=== PATIENT | female | born 1955 | race Caucasian/White ===

== ENCOUNTER 2016-12-07 21:47 | Emergency (ER) | payer MEDICARE, OTHER ==
[~2016-12-07] VITALS: Ht 152.4 cm; Wt 78.0 kg
[~2016-12-07 21:47] MED LIST: ALBU18HF INHALATION; ALBU8.5H5 INH; ATEN-51 PO; AZIT250T94 PO; GUAI118L94 PO; LEVO500T72 PO; METF500T4 PO; PRED20TA PO; PRED50TA PO
[2016-12-07 21:52] VITALS: Ht 152.4 cm; Wt 78.0 kg
[2016-12-08] MEDS ORDERED: ALBUTEROL 0.083% (NEB) 2.5 MG/3 ML AMP NEB STA (01:14)
[2016-12-08] MEDS ORDERED: IPRATROPIUM (NEB) 0.5 MG/2.5 ML AMP NEB STA (01:14)
[2016-12-08] MEDS ORDERED: predniSONE 20 MG TAB PO STA (01:14)
[2016-12-08] MEDS ORDERED: ACETAMINOPHEN 325 MG TAB PO ONE (01:30)
--- NOTE | 2016-12-08 01:40 | ERD ---
ER Documentation Chief Complaint Date/Time DATE: 12/08/16 TIME: 01:36 Chief Complaint COUGH SOB X3 DAYS STATES SHE HAS BRONCHITIS HPI 61-year-old female with a history of asthma and bronchitis presents the emergency department complaining of cough and shortness of breath 3 days. Patient states her cough has become progressively worse and is now productive with associated wheezing. Patient states she normally uses an albuterol inhaler but needs a refill prescription. Patient also states she has been experiencing fever and chills. Last dose of Tylenol was 5 hours prior to arrival. Patient denies nausea, vomiting, abdominal pain, diarrhea. ROS All systems reviewed and are negative except as per history of present illness. Medications Home Meds Active Scripts Azithromycin* (Zithromax*) 250 Mg Tablet, 250 MG PO .PUNEET DIRECTED, #6 TAB TAKE 500 MG (2 TABS) THE FIRST DAY THEN 250 MG (1 TAB) DAYS 2-5 Prov:AUDREY GODWIN PA-C 12/08/16 Albuterol Sulfate* (Proair HFA*) 8.5 Gm Hfa.aer.ad, 2 PUFF INH Q4, #1 INHALER Prov:AUDREY GODWIN PA-C 12/08/16 Prednisone* (Prednisone*) 20 Mg Tab, 40 MG PO DAILY for 4 Days, TAB Prov:AUDREY GODWIN PA-C 12/08/16 Azithromycin* (Zithromax*) 250 Mg Tablet, 250 MG PO DAILY for 4 Days, TAB Prov:LION LOCKWOOD MD 05/14/16 Prednisone* (Prednisone*) 20 Mg Tab, 60 MG PO DAILY for 4 Days, TAB Prov:LION LOCKWOOD MD 05/14/16 Albuterol Sulfate* (Ventolin HFA*) 18 Gm Hfa.aer.ad, 2 PUFF INHALATION Q4H, #1 INHALER Prov:LION LOCKWOOD MD 05/14/16 Prednisone* (Prednisone*) 50 Mg Tablet, 50 MG PO DAILY for 5 Days, TAB Prov:ROSE CUNHA NP 06/03/15 Albuterol Sulfate* (Albuterol Sulfate* HFA) 8.5 Gm Hfa.aer.ad, 2 PUFF INH Q4 Y for SHORTNESS OF BREATH, #1 EA Prov:ROSE CUNHA NP 06/03/15 Levofloxacin* (Levaquin*) 500 Mg Tablet, 500 MG PO DAILY for 7 Days, TAB Prov:ROSE CUNHA NP 06/03/15 Guaifenesin-Codeine Phosphate* (Guaifenesin* with Codeine Liq) 120 Ml Liquid, 5 ML PO Q4H Y for COUGH, #60 ML Prov:ROSE CUNHA NP 06/03/15 Reported Medications Atenolol* (Atenolol*) Unknown Strength Tablet, PO DAILY, TAB 06/03/15 Metformin* (Glucophage*) Unknown Strength Tab, PO BID, #20 TAB 06/03/15 Allergies Allergies: Coded Allergies: No Known Drug Allergies (Verified Allergy, Unknown, 06/03/15) PMhx/Soc Hx Respiratory Disorders: Yes (asthma, bronchitis) Hx Cardiac Disorders: Yes (htn) Hx Miscellaneous Medical Probl: Yes (dm) Hx Alcohol Use: No Hx Substance Use: No Hx Tobacco Use: No Physical Exam Vitals Vital Signs Date Time Temp Pulse Resp B/P Pulse Ox O2 Delivery O2 Flow Rate FiO2 12/08/16 01:47 82 18 97 21 12/07/16 21:52 100.7 94 26 163/72 96 Physical Exam Const: Well-developed, well-nourished, in mild distress Head: Atraumatic Eyes: Normal Conjunctiva ENT: Normal External Ears, Nose and Mouth. Neck: Full range of motion..~ No meningismus. Resp: Diffuse inspiratory and expiratory wheezes bilaterally. No rhonchi or rales. Cardio: Regular rate and rhythm, no murmurs Abd: Soft, non tender, non distended. Normal bowel sounds Skin: No petechiae or rashes Back: No midline or flank tenderness Ext: No cyanosis, or edema Neur: Awake and alert Psych: Normal Mood and Affect Results 24 hrs Current Medications Medications (Trade) Dose Ordered Sig/Zak Route PRN Reason Start Time Stop Time Status Last Admin Dose Admin Albuterol (Proventil 0.083% (Neb)) 5 mg ONCE STAT NEB 12/08/16 01:14 12/08/16 01:17 DC 12/08/16 01:45 Ipratropium [place] (Atrovent 0.02% (Neb)) 0.5 mg ONCE STAT NEB 12/08/16 01:14 12/08/16 01:17 DC 12/08/16 01:45 Prednisone (Prednisone) 60 mg ONCE STAT PO 12/08/16 01:14 12/08/16 01:17 DC 12/08/16 01:42 Acetaminophen (Tylenol Tab) 650 mg ONCE ONCE PO 12/08/16 01:30 12/08/16 01:31 DC 12/08/16 01:40 Procedures/MDM 61-year-old female with a history of asthma and bronchitis presents the emergency department for cough and shortness of breath 3 days. Patient's temperature measured 100.7 upon arrival. Patient was non-hypoxic at 96% on room air. Physical exam revealed bilateral diffuse wheezing. Patient received duo nebulizer treatment while in the emergency department as well as prednisone. Patient received Tylenol for fever which was well controlled. Case taken over by Rose riojas PA-C, as xray results and nebulizer treatment are pending. Departure Diagnosis: Primary Impression: Cough Additional Impressions: Shortness of breath Asthma exacerbation Fever Fever type: unspecified Qualified Code: R50.9 - Fever, unspecified fever cause Wheezing AUDREY GODWIN PA-C December 08, 2016 01:40 Departure Diagnosis: Primary Impression: Cough Additional Impression: Shortness of breath AUDREY GODWIN PA-C December 08, 2016 01:40
[2016-12-08] MEDS ORDERED: ALBU8.5H3 INH (01:50)
[2016-12-08] MEDS ORDERED: PRED20TA PO (01:50)
[2016-12-08] MEDS ORDERED: AZIT250T94 PO (01:50)
--- NOTE | 2016-12-08 03:01 | RADRPT ---
PROCEDURE: Chest. CLINICAL INDICATION: Cough. TECHNIQUE: Single frontal view of the chest was obtained. COMPARISON: 05/14/2016. FINDINGS: The cardiac silhouette is within normal limits. The aortic arch is calcified. There is a calcified granuloma within the right lung base. There is no focal consolidation, vascular congestion or pleur al effusion. There is no pneumothorax. IMPRESSION: No evidence for active cardiopulmonary disease. Aortic atherosclerosis. .Ike Olmos MD, MD Date Time Electronically viewed and signed by .Ike Olmos MD, on 12/08/2016 03:01 .T/
--- NOTE | 2016-12-08 03:06 | EN ---
Date/Time of Note Date/Time of Note DATE: 12/08/16 TIME: 03:05 ER Progress Note L . Cahta RODRIGUEZ signed out this patient to me, pending CXR results, this was reviewed, PROCEDURE: Chest. CLINICAL INDICATION: Cough. TECHNIQUE: Single frontal view of the chest was obtained. COMPARISON: 05/14/2016. FINDINGS: The cardiac silhouette is within normal limits. The aortic arch is calcified. There is a calcified granuloma within the right lung base. There is no focal consolidation, vascular congestion or pleural effusion. There is no pneumothorax. IMPRESSION: No evidence for active cardiopulmonary disease. Aortic atherosclerosis. .Ike Olmos MD, MD Date Time Electronically viewed and signed by .Ike Olmos MD, MD on 12/08/2016 03:01 .T/ Patient was d/c accdg to Chata's instructions. Stable, Lungs clear, oxygenation normal. MERT CUNHA NP December 08, 2016 03:06
[2016-12-08 03:14] VITALS: BP 144/75; PULSE 89; RESP 26; TEMP 99.1
== END 2016-12-08 03:16 | disposition home or self-care (01) ==
LOC: FTE 21:47
DX: J45.901 Unspecified asthma with (acute) exacerbation (principal); R50.9 Fever, unspecified; I10 Essential (primary) hypertension; E11.9 Type 2 diabetes mellitus without complications; Z79.84 Long term (current) use of oral hypoglycemic drugs
CPT/HCPCS: 71010; 94664; J7512

== ENCOUNTER 2016-12-10 14:34 | Emergency (ER) | payer MEDICARE, OTHER ==
[~2016-12-10] VITALS: Wt 78.5 kg
[~2016-12-10 14:34] MED LIST changes: +ALBU8.5H3 INH
[2016-12-10] MEDS ORDERED: IPRATROPIUM (NEB) 0.5 MG/2.5 ML AMP INH STA (15:24)
[2016-12-10] MEDS ORDERED: ALBUTEROL 0.5% (NEB) 2.5 MG/0.5 ML AMP INH STA (15:24)
[2016-12-10] MEDS ORDERED: predniSONE 20 MG TAB PO STA (15:24)
--- NOTE | 2016-12-10 16:46 | ERD ---
ER Documentation Chief Complaint Date/Time DATE: 12/10/16 TIME: 16:43 Chief Complaint SOB/COUGH X1WEEK HPI This is a 61-year-old female who presents to the emergency room for evaluation of shortness of breath, and wheezing. The patient states that she has had symptoms for 1 week duration. She was seen in the emergency room this week and was diagnosed with bronchitis and discharged home with prednisone and azithromycin. This patient states that she has only gotten slightly better and came to the ER today for evaluation. She denies any fever or any phlegm production. ROS All systems reviewed and are negative except as per history of present illness. Medications Home Meds Active Scripts Azithromycin* (Zithromax*) 250 Mg Tablet, 250 MG PO .AshishPACK DIRECTED, #6 TAB TAKE 500 MG (2 TABS) THE FIRST DAY THEN 250 MG (1 TAB) DAYS 2-5 Prov:AUDREY GODWIN PA-C 12/08/16 Albuterol Sulfate* (Proair HFA*) 8.5 Gm Hfa.aer.ad, 2 PUFF INH Q4, #1 INHALER Prov:AUDREY GODWIN PA-C 12/08/16 Prednisone* (Prednisone*) 20 Mg Tab, 40 MG PO DAILY for 4 Days, TAB Prov:AUDREY GODWIN PA-C 12/08/16 Azithromycin* (Zithromax*) 250 Mg Tablet, 250 MG PO DAILY for 4 Days, TAB Prov:LION LOCKWOOD MD 05/14/16 Prednisone* (Prednisone*) 20 Mg Tab, 60 MG PO DAILY for 4 Days, TAB Prov:LION LOCKWOOD MD 05/14/16 Albuterol Sulfate* (Ventolin HFA*) 18 Gm Hfa.aer.ad, 2 PUFF INHALATION Q4H, #1 INHALER Prov:LION LOCKWOOD MD 05/14/16 Prednisone* (Prednisone*) 50 Mg Tablet, 50 MG PO DAILY for 5 Days, TAB Prov:MERT CUNHA NP 06/03/15 Albuterol Sulfate* (Albuterol Sulfate* HFA) 8.5 Gm Hfa.aer.ad, 2 PUFF INH Q4 Y for SHORTNESS OF BREATH, #1 EA Prov:MERT CUNHA NP 06/03/15 Levofloxacin* (Levaquin*) 500 Mg Tablet, 500 MG PO DAILY for 7 Days, TAB Prov:MERT CUNHA S[employer]ENDER [employer]ER 06/03/15 Guaifenesin-Codeine Phosphate* (Guaifenesin* with Codeine Liq) 120 Ml Liquid, 5 ML PO Q4H Y for COUGH, #60 ML Prov:MERT CUNHA S[employer]ENDER [employer]KER 06/03/15 Reported Medications Atenolol* (Atenolol*) Unknown Strength Tablet, PO DAILY, TAB 06/03/15 Metformin* (Glucophage*) Unknown Strength Tab, PO BID, #20 TAB 06/03/15 Allergies Allergies: Coded Allergies: No Known Drug Allergies (Verified Allergy, Unknown, 06/03/15) PMhx/Soc Medical and Surgical Hx: pt denies Medical Hx, pt denies Surgical Hx History of Surgery: No Anesthesia Reaction: No Hx Neurological Disorder: No Hx Respiratory Disorders: No Hx Cardiac Disorders: Yes (htn) Hx Psychiatric Problems: No Hx Miscellaneous Medical Probl: Yes (diabetes) Hx Alcohol Use: Yes (rare) Hx Substance Use: No Hx Tobacco Use: No Physical Exam Vitals Vital Signs Date Time Temp Pulse Resp B/P Pulse Ox O2 Delivery O2 Flow Rate FiO2 12/10/16 15:36 75 18 98 21 12/10/16 14:36 98.2 75 18 182/82 98 Physical Exam Const: No acute distress Head: Atraumatic Eyes: Normal Conjunctiva ENT: Normal External Ears, Nose and Mouth. Neck: Full range of motion..~ No meningismus. Resp: Wheezing auscultated bilaterally Cardio: Regular rate and rhythm, no murmurs Abd: Soft, non tender, non distended. Normal bowel sounds Skin: No petechiae or rashes Back: No midline or flank tenderness Ext: No cyanosis, or edema Neur: Awake and alert Psych: Normal Mood and Affect Results 24 hrs Current Medications Medications (Trade) Dose Ordered Sig/Zak Route PRN Reason Start Time Stop Time Status Last Admin Dose Admin Albuterol (Proventil 0.5% (Neb)) 15 mg ONCE STAT INH 12/10/16 15:24 12/10/16 15:26 DC 12/10/16 15:35 Ipratropium [place] (Atrovent 0.02% (Neb)) 1 mg ONCE STAT INH 12/10/16 15:24 12/10/16 15:26 DC 12/10/16 15:35 Prednisone (Prednisone) 60 mg ONCE STAT PO 12/10/16 15:24 12/10/16 15:26 DC 12/10/16 15:30 Procedures/MDM This 61-year-old female presents to the emergency room for evaluation of shortness of breath. She was diagnosed with bronchitis and discharged last week from the emergency room with a prescription for azithromycin and prednisone. When I evaluated this patient she had a wheezing bilaterally. The patient was given 60 mg prednisone by mouth, she was placed on hour-long breathing treatment and upon my reevaluation the patient states she is feeling much better at this time. Her wheezing has significantly diminished and she is not hypoxic, no respiratory distress. This patient will be discharged at this time with instructions to continue her home regimen of medication for bronchitis. Departure Diagnosis: Primary Impression: Acute bronchitis Condition: Stable TARAH DEL REAL DO December 10, 2016 16:46
[2016-12-10] MEDS ORDERED: PRED20TA PO (16:47)
== END 2016-12-10 18:05 | disposition home or self-care (01) ==
LOC: FTE 14:34
DX: J20.9 Acute bronchitis, unspecified (principal); E11.9 Type 2 diabetes mellitus without complications; I10 Essential (primary) hypertension; Z79.84 Long term (current) use of oral hypoglycemic drugs
CPT/HCPCS: 94644; J7512